=== PATIENT | female | born 1965 | race Hispanic/Latino ===

== ENCOUNTER 2021-03-25 12:57 | Emergency (ER) | payer SELFPAY ==
[~2021-03-25] VITALS: Ht 157.5 cm; Wt 75.7 kg
[2021-03-25] MEDS ORDERED: FLONASE ALLERG9.9 ML INH (14:04)
[2021-03-25 15:07] VITALS: BP 126/65
== END 2021-03-25 14:50 | disposition home or self-care (01) ==
LOC: ER 13:10
DX: R05 Cough (principal); M54.6 Pain in thoracic spine; M54.5 Low back pain; F17.210 Nicotine dependence, cigarettes, uncomplicated
CPT/HCPCS: 71046; 99283